=== PATIENT | male | born 1965 | race Caucasian/White ===

== ENCOUNTER → 2016-10-22 | Outpatient (CLI) | payer OTHER | LOC: RAD 14:52 | DX: M25.531 Pain in right wrist (principal); M79.641 Pain in right hand; M79.631 Pain in right forearm; R93.7 Abnormal findings on diagnostic imaging of other parts of musculoskeletal system; W19.XXXA Unspecified fall, initial encounter | CPT/HCPCS: 73090; 73110; 73130 ==

== ENCOUNTER → 2016-11-23 | Outpatient (CLI) | payer OTHER | LOC: EMI 11-20 13:45 | DX: M54.5 Low back pain (principal); M47.896 Other spondylosis, lumbar region | CPT/HCPCS: 72148 ==